=== PATIENT | male | born 1995 | race Caucasian/White ===

== ENCOUNTER 2017-08-26 13:01 | Emergency (ER) | payer OTHER ==
[~2017-08-26] VITALS: Ht 205.7 cm; Wt 136.1 kg
[~2017-08-26 13:01] MED LIST: FLEXERIL PO; IBUPROFEN 800800 M1 PO; NOHOMEMEDICATIONS; ZOFRAN ODT4 MG SUBLING
[2017-08-26 14:02] LABS: ABSOLUTE BASOPHILS 0.1 thou/uL (0.0-0.2); ABSOLUTE EOSINOPHILS 0.2 thou/uL (0.0-0.7); ABSOLUTE LYMPHOCYTES 3.7 thou/uL (0.8-5.3); ABSOLUTE MONOCYTES 0.6 thou/uL (0.0-1.2); BASOPHILS 1.2 %; EOSINOPHILS 2.3 %; HEMATOCRIT 43.6 % (42.0-52.0); HEMOGLOBIN 15.2 gm/dL (14.0-18.0); LYMPHOCYTES 34.7 %; MCH 29.4 pg (26.0-34.0); MCHC 34.8 g/dL (28.0-37.0); MCV 84.6 fL (80.0-100.0); MONOCYTES 5.6 %; NUCLEATED RBCS 0 /100WBC; PLATELET COUNT* 276 thou/uL (150-400); POLYS 56.2 %; RBC 5.16 mil/uL (4.50-6.00); RDW-CV 12.8 % (10.5-14.5); WBC 10.7 thou/uL (4.0-11.0)
[2017-08-26 14:08] LABS: CALCIUM 9.5 mg/dL (8.5-10.1); CREATININE 1.2 mg/dL (0.6-1.3); POTASSIUM 5.3 mmol/L (3.5-5.1)
[2017-08-26 14:13] LABS: ALBUMIN 4.4 g/dL (3.4-5.0); TOTAL BILIRUBIN 0.5 mg/dL (<0.1-1.0); TOTAL PROTEIN 8.1 g/dL (6.4-8.2)
[2017-08-26 14:36] LABS: URINE BILIRUBIN NEGATIVE (Negative); URINE BLOOD NEGATIVE (Negative); URINE CLARITY CLEAR; URINE COLOR YELLOW; URINE GLUCOSE-RANDOM NEGATIVE (Negative); URINE KETONES NEGATIVE (Negative); URINE LEUKOCYTES-REFLEX NEGATIVE (Negative); URINE NITRITE-REFLEX NEGATIVE (Negative); URINE PROTEIN NEGATIVE (Negative); URINE SPECIFIC GRAVITY >= 1.030 (1.005-1.030); URINE UROBILINOGEN 0.2 E.U./dl (0.2-1.0)
[2017-08-26 14:51] LABS: AMP/METHAMP Negative (Negative); BARBITURATES Negative (Negative); BENZODIAZEPINES Negative (Negative); COCAINE Negative (Negative); METHADONE Negative (Negative); OPIATES Negative (Negative); PCP Negative (Negative); THC Negative (Negative)
[2017-08-26 15:47] VITALS: BP 144/66
== END 2017-08-26 15:48 | disposition home or self-care (01) ==
LOC: M.ERS 13:01
PROVIDERS: Nurse Practitioner Family
DX: S09.8XXA Other specified injuries of head, initial encounter (principal); F17.200 Nicotine dependence, unspecified, uncomplicated; W22.8XXA Striking against or struck by other objects, initial encounter; Y93.89 Activity, other specified; Y92.89 Other specified places as the place of occurrence of the external cause; Y99.8 Other external cause status

== ENCOUNTER → 2017-09-18 | Outpatient (CLI) | payer OTHER ==
--- NOTE | 2017-10-04 08:15 | EEG ---
[address] [address] EEG STUDY REPORT Name: JAMIE HUGO Room: [facility]#: [id number] Admission: 09/18/17 Attend Phys: Sulaiman Byers MD Discharge: Date of : 89 Report #: [id number] THIS REPORT FOR: //name// CC: FAM physician/PCP Sulaiman Byers DATE OF SERVICE: 09/18/2017 This patient is being evaluated for the possibility of seizures. EEG was done by placing the electrodes by standard 10-20 system of electrode placement. Both referential and sequential montages were used for recording. Background activity in this patient's EEG is about 11 Hz and 40 microvolt. This is a symmetrical activity. The patient went to sleep that was associated with bilaterally symmetrical sleep spindle and vertex sharp waves. Photic stimulation was unremarkable. Throughout the record, no active epileptiform activity was noticed. IMPRESSION: This patient's EEG is unremarkable. Thank you very much for this referral. It might be mentioned that EEG can be normal in a patient with a seizure disorder. Thank you very much for this referral. <ELECTRONICALLY SIGNED> By: Sulaiman Byers MD 10/04/17 0815 [id number] Byers MD /nt
== END ==
LOC: M.MRI 09-03 16:19 → M.CRD 09-14 12:30 → M.MRI 08:30 → M.CRD 12:13
DX: S09.90XA Unspecified injury of head, initial encounter (principal); R93.8 Abnormal findings on diagnostic imaging of other specified body structures; X58.XXXA Exposure to other specified factors, initial encounter; Y93.89 Activity, other specified; Y92.89 Other specified places as the place of occurrence of the external cause; Y99.8 Other external cause status